=== PATIENT | male | born 1995 | race Caucasian/White ===

== ENCOUNTER 2025-10-16 13:46 | Emergency (ER) | payer OTHER ==
[~2025-10-16] VITALS: Ht 175.3 cm; Wt 95.3 kg
[2025-10-16 14:05] VITALS: BP 111/77
[2025-10-16] MEDS ORDERED: HYDR-3980 PO (16:33)
[2025-10-16] MEDS ORDERED: SULF1TAB48 PO (16:33)
[2025-10-16] MEDS ORDERED: CEFD300C3 PO (16:33)
[2025-10-16 16:49] VITALS: BP 111/77; TEMP 98; O2SAT 99
== END 2025-10-16 16:50 | disposition home or self-care (01) ==
LOC: ER 13:46
DX: L02.415 Cutaneous abscess of right lower limb (principal)
CPT/HCPCS: A4606; A4663